=== PATIENT | female | born 1940 | race Caucasian/White ===

== ENCOUNTER 2020-08-03 15:48 | Outpatient (CLI) | payer MEDICARE, SELFPAY ==
--- NOTE | ~2020-08-03 | XR_ITS ---
EXAMINATION: XR abdomen/kub 1V EXAM DATE: 08/03/2020 16:25 INDICATION: Bladder stone. TECHNIQUE: Frontal projection(s) of the abdomen for interpretation. There is no prior study for samra ro. FINDINGS: There is moderate amount of colonic stool and gas. No small bowel dilation, nonobstructiv e bowel gas pattern. Calcifications in the pelvis are believed to be phleboliths. There is no orga nomegaly suspected. Advanced lumbar spondylosis. Total left hip arthroplasty. Lung bases unremarkab le. IMPRESSION: Unremarkable abdomen x-ray exam. Reviewed, dictated and finalized at location A.
--- NOTE | ~2020-08-03 | CT_ITS ---
EXAMINATION: CT abdomen pelvis wo con EXAM DATE: 08/03/2020 16:17 INDICATION: Bladder stone. TECHNIQUE: Spiral CT of the abdomen and pelvis was performed without contrast. Axial, coronal and sag ittal images were reviewed. The dose-length product (DLP) for this examination was 232.19 mGy-cm. T he exposure was tailored according to patient size (auto mA exposure control), and iterative reconstr uction (ASIR) was used as additional dose reduction technique. Comparison is made to prior examinatio n from 02/08/2012. FINDINGS: There are left renal peripelvic cysts. There is no nephrolithiasis or hydronephrosis. The uterus is not identified and has likely been surgically resected. Bladder evaluation is somewhat li mited from the metallic artifact caused by left hip arthroplasty, but there is no suspicion of bladde r stone. The The liver, spleen, adrenal glands and pancreas are unremarkable. Gallbladder is unrema rkable. No biliary obstruction. There is no retroperitoneal or pelvic lymphadenopathy. The appendix is normal. The stomach and small bowel are unremarkable. There is moderate amount of c olonic stool. No free intraperitoneal gas. The heart is normal in size. There are no pericardial or pleural effusions. The lung bases are unremarkable. There are no osteoblastic or osteolytic les ions identified. Moderate to severe lumbar disc disease. IMPRESSION: 1. No genitourinary calcifications, however some limitations in evaluating pelvis due to metallic ar tifact. Reviewed, dictated and finalized at location A. IMPRESSION: 1. No genitourinary calcifications, however some limitations in evaluating pel vis due to metallic artifact.
== END 2020-08-03 15:49 | disposition home or self-care (01) ==
PROVIDERS: PCP Family Medicine; Visit Provider Urology
DX: N21.0 Calculus in bladder (principal)
CPT/HCPCS: 74018; 74176

== ENCOUNTER 2020-08-24 06:54 | Outpatient (NON) | payer MEDICARE, SELFPAY ==
[2020-08-25 02:59] LABS: SARS-CoV-2 RNA PCR Negative
== END 2020-08-24 06:55 ==
LOC: ANHCOVIDDT 06:58
PROVIDERS: PCP Family Medicine; Visit Provider Family Medicine
DX: Z20.828 Contact with and (suspected) exposure to other viral communicable diseases (principal); J01.90 Acute sinusitis, unspecified
CPT/HCPCS: 87635; C9803; U0003

== ENCOUNTER → 2023-08-14 15:24 | Outpatient (CLI) | payer MEDICARE, SELFPAY ==
--- NOTE | ~2023-08-14 | XR_ITS ---
EXAMINATION: XR abdomen obstructive series DATE: 08/14/2023 15:44 INDICATION: Constipation, unspecified. TECHNIQUE: Upright and supine views of the abdomen were obtained. COMPARISON: CT abdomen and pelvis 08/03/2020 FINDINGS: There are no dilated loops of bowel. There is a paucity of stool in the colon. No free intr aperitoneal gas. There is a total left hip arthroplasty. IMPRESSION: 1. Normal bowel gas pattern. Reviewed, dictated and finalized at location E.
== END ==
PROVIDERS: PCP Family Medicine; Visit Provider Family Medicine
DX: K59.00 Constipation, unspecified (principal); R10.9 Unspecified abdominal pain
CPT/HCPCS: 74019

== ENCOUNTER → 2025-08-02 16:05 | Outpatient (CLI) | payer MEDICARE, SELFPAY ==
--- NOTE | ~2025-08-02 | XR_ITS ---
EXAMINATION: XR hip RT min 2V, 08/02/2025 16:10 CDT HISTORY: M25.551 - Pain in right hip COMPARISON: No comparisons available. Findings: No acute fracture or malalignment. Severe degenerative changes Soft tissues unremarkable. Impression: No acute fracture or malalignment. Reviewed, dictated and finalized at location P. Impression: No acute fracture or malalignment.
--- NOTE | ~2025-08-02 | XR_ITS ---
XR lumbar spine min 4V Indication: M54.41 - Lumbago with sciatica, right side Comparison: None Findings: Moderate loss of vertebral height throughout. Moderate osteopenia. No acute fracture or subluxation. Severe loss of disc height throughout. Soft tissues unremarkable Impression: No acute abnormality. Reviewed, dictated and finalized at location P. Impression: No acute abnormality.
--- OUTSIDE RECORDS SUMMARY | 2025-08-02 16:19 | XMS_ITS | Clinical Summary ---
Author Organization [facility] Address [facility] [place] [address] Care Team Providers Care Model Builder Display Name Role Phone Aditya Sheridan MD Primary Care Provider [phone] Allergies No known active allergies Medications ondansetron (ZOFRAN-ODT) 4 MG disintegrating tablet Take 1 tablet (4 mg total) by mouth every 8 (eight) hours as needed for Nausea. 15 tablet Active Social History Tobacco Use Types Packs/Day Years Used Date Smoking Tobacco: Never Smokeless Tobacco: Never Tobacco Cessation:Counseling Given: Not Answered Comments Unknown Sex and Gender Information Value Date Recorded Sex Assigned at Not on file Legal Sex Female 7:04 PM CDT Gender Identity Not on file Sexual Orientation Not on file Last Filed Vital Signs Vital Sign Reading Time Taken Comments Blood Pressure 130/65 10/06/2022 4:51 PM DOCUMENT REVIEW ATTORNEY Pulse 84 10/06/2022 4:51 PM DOCUMENT REVIEW ATTORNEY Temperature 37.6 C (99.7 F) 10/06/2022 4:51 PM DOCUMENT REVIEW ATTORNEY Respiratory Rate 18 10/06/2022 4:51 PM DOCUMENT REVIEW ATTORNEY Oxygen Saturation 98% 10/06/2022 4:51 PM DOCUMENT REVIEW ATTORNEY Inhaled Oxygen Concentration - - Weight 68.4 kg (150 lb 12.7 oz) 10/06/2022 4:51 PM DOCUMENT REVIEW ATTORNEY Height 154.9 cm (5' 1) 10/06/2022 4:51 PM DOCUMENT REVIEW ATTORNEY Body Mass Index 28.49 10/06/2022 4:51 PM DOCUMENT REVIEW ATTORNEY Plan of Treatment Health Maintenance Due Date Last Done Comments DTaP, Tdap and Td Vaccines ( 1 - Tdap) 1957 Pneumococcal Vaccine: 50+ Years (1 of 1 - PCV) 1988 Zoster Vaccines (1 of 2) 1988 Annual Medicare Wellness Visit 2003 RSV Immunization or 60+ Years (1 - 1-dose 75+ series) 2013 COVID-19 Vaccine (4 - 2024-2 6 season) 2025 10/03/2021, 12/30/2020, 12/03/2020 Influenza Adult (#1) 2025 Meningococcal B Vaccine Aged Out No l onger eligible based on patient's age to complete this topic Meningococcal Vaccine Aged Out No yazmin alina eligible based on patient's age to complete this topic RSV Immunizations Under 20 Months Aged Out No longer eligible b ased on patient's age to complete this topic Insurance AETNA MEDICARE Care Teams Model Builder Display Relationship Specialty Start Date End Date Aditya Sheridan MD [address] [place] [address] [address] [place] [address] PCP - General FAMILY PRACTICE 10/06/22
--- OUTSIDE RECORDS SUMMARY | 2025-08-02 16:19 | XMS_ITS | Clinical Summary ---
Author Organization [facility] Address [address] [place] [address] Care Team Providers Care Slicing Machine Operator Name Role Phone Aditya Sheridan MD Primary Care Provider [phone] Source Comments [facility],non-owned Affiliates and Associated Physician Practices is amultiple site organization consisting of ambulatory clinics and hospital sitesin [place], [place], [place] and [place]. This disclosure is being madepursuant to the Care Everywhere program and may not contain all information available regarding this patient. Last updated 18.[facility] Allergies Active Allergy Reactions Criticality Noted Date Comments Adhesive Sensitivity Skin Reactions Low 07/25/2017 Sometimes gets bumps from bandaids Medications * Be aware that medications may not be up to date on this document. Alwaysverify current medications with the patient. atorvastatin (LIPITOR) 20 MG tablet Take 20 mg by mouth once daily 11 7 Active magnesium 500 MG tablet Take 250 mg by mouth at bedtime Active Vitamin D3 (CHOLECALCIFEROL ) 2000 UNITS capsule Take 2,000 Units by mouth at bedtime Active polyethylene glycol 3350 (MIRALAX) powder Take 17 g by mouth once daily as needed for Constipation Active omeprazole (PRILOSEC) 20 MG capsule Take 20 mg by mouth every evening 1 Active Coenzyme Q10 (CoQ-10) 100 MG CoQ-10 Acti ve Turmeric (QC TUMERIC COMPLEX PO) tumeric 100 mg-yaa 150 mg-olive 50 mg-oreg 150 mg-caprylate capsule Take by oral route. Active celecoxib (CeleBREX) 200 MG capsule Take 1 (one) capsule by mouth 2 times daily 60 capsule 1 2 Active oxyCODONE, immediate release, (Roxicodone) 5 MG tabletIndication s:Fall, initial encounter,Closed nondisplaced fracture of medial epicondyle of right humerus, unspecified fracture morphology, initial encounter,Lacera tion of scalp, initial encounter Take 1 (one) tablet by mouth every 6 hours as needed for Pain 8 tablet 5 Active Active Problems Problem Noted Date Diagnosed Date Contusion of elbow 03/07/2025 Closed fracture of distal end of radius 07/05/20 21 Primary osteoarthritis of left knee 07/05/2021 Fracture of forearm 07/05/2021 Shoulder joint pain 07/05/2021 Prediabetes 02/04/2018 Sciatica of right side 12/17/2017 Right hip pain 11/24/2017 Status post total hip replacement, left 08/30/20 17 HTN (hypertension) 08/01/2017 Hyperlipidemia 08/01/2017 CAD (coronary artery disease) 08/01/2017 Presence of left artificial hip joint 08/01/2017 Primary osteoarthritis of left hip 07/19/2017 Aortic atherosclerosis 04/29/2017 Overview (07/05/2021): XR CHEST PA AND LATERAL DATE: 03/12/2017 - Atherosclerosis is noted in the aorta. Basal cell carcinoma 07/08/2012 Other seborrheic keratosis 06/24/2012 Resolved Problems Problem Noted Date Diagnosed Date Resolved Date Diagnosis unknown 08/01/2017 08/01/2017 Pain of left hip joint 08/01/201708/01 Immunizations Immunization Administration Dates Next Due TDAP (7yrs+) 02/07/2025(Deferred: Patient Ref used) Family History Medical History Relation Name Comments Other - Cardiac Other Heart Diseas e Relation Name Status Comments Other Social History Tobacco Use Types Packs/Day Years Used Date Smoking Tobacco: Never Smokeless Tobacco: Never Tobacco Cessation:Counseling Given: Not Answered Alcohol Use Standard Drinks/Week Comments No 0 (1 standard drink = 0.6 oz pur e alcohol) AUDIT-C Answer Date Recorded Q1: How often do you have a drink containing alcohol? Never 09/03/2022 Q2: How many drinks containi ng alcohol do you have on a typical day when you are drinking? Patient does not drink Q3: How often do you have si x or more drinks on one occasion? Never 09/03/2022 PHQ-2 Answer Date Recorded Patient Health Questionnaire-2 Score 1 02/22/2025 Hunger Vital Sign Answer Date Recorded Within the past 12 months, y ou worried that your food would run out before you got the money to buy more. Never true 09/03/20 22 Within the past 12 months, t he food you bought just didn't last and you didn't have money to get more. 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 on file Not on file Not on file Last Filed Vital Signs Vital Sign Reading Time Taken Comments Blood Pressure 152/79 02/07/2025 7:10 PM CDT Pulse 82 02/07/2025 7:10 PM CDT Temperature 36.7 C (98 F) 02/07/2025 10:17 AM CDT Respiratory Rate 18 02/07/2025 7:10 PM CDT Oxygen Saturation 95% 02/07/2025 7:10 PM CDT Inhaled Oxygen Concentration - - Weight 69.9 kg (154 lb) 02/24/2025 2:33 PM CDT Height 154.9 cm (5' 1) 02/07/2025 10:17 AM CDT Body Mass Index 29.1 02/07/2025 10:17 AM CDT Plan of Treatment Health Maintenance Due Date Last Done Comments DTAP/TDAP/TD VACCINES (1 - Tdap) 1959 PNEUMOCOCCAL VACCINE 50+ (1 of 1 - PCV) 1988 ZOSTER VACCINE (1 of 2) 1988 Respiratory Syncytial Virus (RSV) Vaccine Pt: or over 60 yrs (1 - 1-dose 75+ series) 2013 MEDICARE AWV CALENDAR YEAR 2024 COVID-19 VACCINE ( - 2024-2 6 season) 2025 10/03/2021, 12/30/2020, 12/03/2020 INFLUENZA VACCINE (#1) 2025 07/25/2018 BONE DENSITY TESTING Completed 09/02/2018 DEPRESSION SCREENING Completed 02/24/2025, 02/24/2025 HEPATITIS B VACCINE Aged Out No longe r eligible based on patient's age to complete this topic HIB VACCINE Aged Out No longer eligi ble based on patient's age to complete this topic HPV VACCINE Aged Out No longer eligi ble based on patient's age to complete this topic MENINGOCOCCAL (Group B) VACCINE SHARED DECISION-MAKING Aged Out No longer eligible based on patient's age to complete this topic MENINGOCOCCAL GROUPS A/C/Y/W VACCINE Aged Out No longer eligible b ased on patient's age to complete this topic Medical Devices Implanted Type Area Creative Technologist Device Identifier Shelf Expiration Date Model / Serial / Lot Screw 6.5mm 40mm Sphr Hip Actb Reflc Implanted:Qty: 1 on 08/01/2017 by Wing Giron MD at [facility] Left: Hip [employer] 01/18/2022 [id number] / / Liner Actb R3 20d 48mm 32mm Xlpe Hip Implanted:Qty: 1 on 08/01/2017 by Wing Giron MD at [facility] Left: Hip [employer] 04/03/2027 [id number] / / Shell Actb 48mm Hip 3 Hl R3 Std Strl Implanted:Qty: 1 on 08/01/2017 by Wing Giron MD at [facility] Left: Hip [employer] 05/21/2027 [id number] / / Mv Bone Cement Implanted:Qty: 2 on 08/01/2017 by Wing Giron MD at [facility] Left: Hip [employer] 05/20/2020 [id number] / / [id number] Cemented Stem Femoral Component- Size 12 Implanted:Qty: 1 on 08/01/2017 by Wing Giron MD at [facility] Left: Hip [employer] 07/03/2027 [id number] / / [id number] Distal Post Centralizer- 11mm Implanted:Qty: 1 on 08/01/2017 by Wing Giron MD at [facility] Left: Hip [employer] 11/06/2026 [id number] / / [id number] Head Fem +0mm 10/03 32mm Hip Oxnm Implanted:Qty: 1 on 08/01/2017 by Wing Giron MD at [facility] Left: Hip [employer] 09/25/2026 [id number] / / Tray Tib 71mm Kn Cocr I Beam Implanted:Qty: 1 on 09/03/2022 by Vishnu Bianchi MD at [facility] Left: Knee [employer] 06/07/2032 [id number] / / [id number] Cmpnt Fem Kn Lt Cr Cmnt Prm Vngrd Intlk Implanted:Qty: 1 on 09/03/2022 by Vishnu Bianchi MD at [facility] Left: Knee [employer] 07/11/2032 [id number] / / [id number] Brng [id number] Vngrd Arcm Kn Ant Stab Implanted:Qty: 1 on 09/03/2022 by Vishnu Bianchi MD at [facility] Left: Knee [employer] 07/13/2027 [id number] / / [id number] Cmnt Bone Djo Srg Cblt 40gm Hvisc Strl Implanted:Qty: 1 on 09/03/2022 by Vishnu Bianchi MD at [facility] Left: Knee [employer] 11/16/2023 [id number] / / [id number] Cmpnt Ptlr Std 28mm 3 Pg Kn Ser A Implanted:Qty: 1 on 09/03/2022 by Vishnu Bianchi MD at [facility] Left: Knee [employer] 08/23/2026 [id number] / / [id number] Insurance T [place] MEDICARE AET T AETNA MEDICARE ADV Advance Directives * Full Code (Latest Code Status on File) Date Activated Date Inactivated Comments 09/03/2022 1:22 PM 09/04/2022 3:33 PM * Full Code Date Activated Date Inactivated Comments 08/01/2017 2:04 PM 08/04/2017 1:18 PM Care Teams Slicing Machine Operator Relationship Specialty Start Date End Date Aditya Sheridan MD [address] [address] [place] [address] PCP - General 05/23/21
--- OUTSIDE RECORDS SUMMARY | 2025-08-02 16:19 | XMS_ITS | Encounter Summary ---
Author Organization [facility] Address [address] [place] [address] Care Team Providers Care Tennis Ball Coverer Hand Name Role Phone Aditya Sheridan MD Primary Care Provider [phone] Encounter Details Date Type Department Care Team (Late st Contact Info) Description 02/08/1999 Outpatient Historical [facility] John Melo MD [address] [place] [address] Social History Tobacco Use Types Packs/Day Years Used Date Smoking Tobacco: Never Assessed Comments Unknown Sex and Gender Information Value Date Recorded Sex Assigned at Not on file Legal Sex Female 2:37 AM GATE SHEAR OPERATOR Gender Identity Not on file Sexual Orientation Not on file documented as of this encounter Plan of Treatment Not on file documented as of this encounter Visit Diagnoses Not on filedocumented in this encounter Care Teams Tennis Ball Coverer Hand Relationship Specialty Start Date End Date Aditya Sheridan MD [address] [place] [address] [address] [place] [id number] PCP - General Family Practice 12/10/24 documented as of this encounter
--- OUTSIDE RECORDS SUMMARY | 2025-08-02 16:19 | XMS_ITS | Clinical Summary ---
Author Organization [facility] Address [address] [place] [address] Care Team Providers Care Billiard Table Mechanic Name Role Phone Aditya Sheridan MD Primary Care Provider [phone] Allergies No known active allergies Medications atorvastatin (LIPITOR) 20 mg tablet TK 1 T PO QD 10 08/12/2016 Active aspirin (ECOTRIN EC) 81 mg Tablet, Delayed Release (E.C.) Take 81 mg by mouth daily. Active Cholecalciferol, Vitamin D3, 2,000 unit Capsule Take 2,000 Units by mouth. Active cyanocobalamin 1,000 mcg Tablet Take 1,000 mcg by mouth daily. Active magnesium oxide (MAG-OX) 400 mg tablet Take 400 mg by mouth daily. Active coenzyme Q10 Capsule Take 10 mg by mouth daily. Active amLODIPine (NORVASC) 2.5 mg tablet TAKE 1 TABLET(2.5 MG) BY MOUTH DAILY. 90 Tablet 3 02/04/2018 Active furosemide (LASIX) 20 mg tabletIndications :Essential hypertension TAKE 1 TABLET(20 MG) BY MOUTH DAILY 30 Tablet 03/25/2018 Active lisinopril (PRINIVIL) 10 mg tabletIndications :Essential hypertension TAKE 1 TABLET(10 MG) BY MOUTH DAILY 30 Tablet 4 06/26/2018 Active meclizine (ANTIVERT) 25 mg tablet Take 1 Tablet (25 mg) by mouth 3 times daily as needed for Dizziness. 30 Tablet 08/20/2018 Active Active Problems Patient Care Coordination No te Formatting of this note migh t be different from the original. HCC coding review full 11/13/16 clk Pre Visit Encounter Review 11/21/16 clk, 04/29/17 clk HCC codes reviewed 01/30/17 clk Problem Noted Date Diagnosed Date Prediabetes 02/04/2018 Presence of left artificial hip joint 08/01/2017 Aortic atherosclerosis 04/29/2017 Overview (04/29/2017): XR CHEST PA AND LATERAL DATE: 03/12/2017 - Atherosclerosis is noted in the aorta. HTN (hypertension) Hyperlipidemia DJD (degenerative joint disease) of knee Resolved Problems Problem Noted Date Diagnosed Date Resolved Date Pain, upper back 12/12/2016 01/30/2017 Vertigo 02/04/2018 Encounters Date Type Department Care Team Description 06/22/2025 External Device Data ST[facility] ABSTRACTION Provider, Abstract 06/08/2025 External Device Data [facility] ABSTRACTION Provider, Abstract 06/01/2025 External Device Data [facility] ABSTRACTION Provider, Abstract 05/26/2025 External Device Data [facility] ABSTRACTION Provider, Abstract 05/05/2025 External Device Data ST[facility] ABSTRACTION Provider, Abstract 05/04/2025 External Device Data ST[facility] ABSTRACTION Provider, Abstract from Last 3 Months Immunizations Immunization Administration Dates Next Due (PNEUMOVAX 23)(50 YRS UP) PN EUMOCOCCAL POLYSACCHARIDE (PPV23) 0.5 ML, IM 08/21/2018 (PREVNAR 13)(6 WKS UP) PNEUM OCOCCAL CONJUGATE (PCV13) 0.5 ML, IM 01/30/2017 Influenza Seasonal Unspecified Formulation IM Family History Medical History Relation Name Comments Heart Disease Brother Heart Disease Father Lung Cancer Mother Relation Name Status Comments Brother Father Mother Sister Alive Social History Tobacco Use Types Packs/Day Years Used Date Smoking Tobacco: Never Feeling Safe Answer Date Recorded Are you in a relationship wi th someone who hurts you emotionally and/or physically? No 12/10/2024 Comments Unknown Sex and Gender Information Value Date Recorded Sex Assigned at Not on file Legal Sex Female 2:37 AM NURSES' AIDE Gender Identity Not on file Sexual Orientation Not on file Last Filed Vital Signs Vital Sign Reading Time Taken Comments Blood Pressure 120/63 12/10/2024 3:35 PM NURSES' AIDE Pulse 66 12/10/2024 3:35 PM NURSES' AIDE Temperature 36.9 C (98.4 F) 12/10/2024 10:12 AM NURSES' AIDE Respiratory Rate 17 12/10/2024 3:35 PM NURSES' AIDE Oxygen Saturation 100% 12/10/2024 3:35 PM NURSES' AIDE Inhaled Oxygen Concentration - - Weight 72.6 kg (160 lb) 12/10/2024 10:12 AM NURSES' AIDE Height 157.5 cm (5' 2) 12/10/2024 10:12 AM NURSES' AIDE Body Mass Index 29.26 12/10/2024 10:12 AM NURSES' AIDE Plan of Treatment Health Maintenance Due Date Last Done Comments DTAP/TDAP/TD VACCINES (1 - Tdap) 1957 ZOSTER VACCINE (1 of 2) 1988 RSV VACCINE (60+ or ) (1 - 1-dose 75+ series) 2013 OSTEOPOROSIS SCREENING 09/02/2023 09/02/2018 INFLUENZA VACCINE (#1) 2025 07/25/2018 PNEUMOCOCCAL VACCINE 50+ YEARS Completed 08/21/2018 , 01/30/2017 Procedures Procedure Name Priority Date/Time Associated Diagnosis Comments XR DEXA BONE DENSITY AXIAL 1 OR MORE SITES Routine 09/02/2018 11:46 AM NURSES' AIDE Postmenopausal from Last 3 Months or Most Recently Relevant to Health Maintenance Results * XR DEXA BONE DENSITY AXIAL 1 OR MORE SITES (09/02/2018 11:46 AM NURSES' AIDE) Anatomical Region Laterality Modality Digital Radiogra phy 09/02/2018 11:4 6 AM NURSES' AIDE Narrative 09/02/2018 12:18 PM NURSES' AIDE XR DEXA BONE DENSITY AXIAL 1 OR MORE SITES DATE: 09/02/2018 11:46 AM HISTORY: 78 years old Female with post menopausal symptoms. PROCEDURE: Planar images of the lumbar spine, forearm and hip(s) using a [employer] DEXA scanner for bone mineral density determination (BMD). FINDINGS: Lumbar Spine (L1-L4) 1.193 gm/cm2, T-score: 0.0 Right femoral neck 0.843 gm/cm2, T-score: -1.4 Left Radius 33% 0.777 gm/cm2, T-score: -1.2 Comments: The left femoral neck was excluded from bone mineral density measurements secondary to the presence of orthopedic hardware. IMPRESSION Osteopenic bone mineral density. DEFINITIONS: Normal: T-score above -1.0 Osteopenia T-score less than -1.0 and above -2.5 Osteoporosis: T-score < -2.5 FRAX FRACTURE RISK ASSESSMENT: Risk factors: Family history 10 Year Probability Of Fracture -Major Osteoporotic: 22.1% -Hip: 12.1% -Comparison population: [place], A major osteoporotic fracture is defined as a fracture of the spine, forearm, hip or shoulder. FOLLOW-UP RECOMMENDATIONS: Patients without high risk factors for osteoporosis: T-score -1.0 to -1.5 - Consider repeat BMD in 5-10 years T-score -1.5 to -2.0 - Consider repeat BMD in 3-5 years T-score -2.0 to - 2.5 - Consider repeat BMD every 2 years Patients on treatment for osteoporosis: 1-2 years after initiation of treatment and every 2 [address] Mac Gilliland DO DICTATION LOCATION: Location 1 - [facility] Procedure Note Mac Gilliland DO - 09/02/2018 XR DEXA BONE DENSITY AXIAL 1 OR MORE SITES DATE: 09/02/2018 11:46 AM HISTORY: 78 years old Female with post menopausal symptoms. PROCEDURE: Planar images of the lumbar spine, forearm and hip(s) using a [employer] DEXA scanner for bone mineral density determination (BMD). FINDINGS: Lumbar Spine (L1-L4) 1.193 gm/cm2, T-score: 0.0 Right femoral neck 0.843 gm/cm2, T-score: -1.4 Left Radius 33% 0.777 gm/cm2, T-score: -1.2 Comments: The left femoral neck was excluded from bone mineral density measurements secondary to the presence of orthopedic hardware. IMPRESSION Osteopenic bone mineral density. DEFINITIONS: Normal: T-score above -1.0 Osteopenia T-score less than -1.0 and above -2.5 Osteoporosis: T-score < -2.5 FRAX FRACTURE RISK ASSESSMENT: Risk factors: Family history 10 Year Probability Of Fracture -Major Osteoporotic: 22.1% -Hip: 12.1% -Comparison population: [place], A major osteoporotic fracture is defined as a fracture of the spine, forearm, hip or shoulder. FOLLOW-UP RECOMMENDATIONS: Patients without high risk factors for osteoporosis: T-score -1.0 to -1.5 - Consider repeat BMD in 5-10 years T-score -1.5 to -2.0 - Consider repeat BMD in 3-5 years T-score -2.0 to - 2.5 - Consider repeat BMD every 2 years Patients on treatment for osteoporosis: 1-2 years after initiation of treatment and every 2 years thereafter [address] Mac Gilliland DO DICTATION LOCATION: Location 1 - [facility] Diane Harding MD DIAGNOSTIC IMAGING ORDERABLE S Final Result from Last 3 Months or Most Recently Relevant to Health Maintenance [facility] Care Teams Billiard Table Mechanic Relationship Specialty Start Date End Date Aditya Sheridan MD [address] [place], [place] [address] [place] [id number] PCP - General Family Practice 12/10/24
--- OUTSIDE RECORDS SUMMARY | 2025-08-02 16:19 | XMS_ITS | Encounter Summary ---
Author Organization [employer] [facility] Address [address] [place] [address] Care Team Providers Care Superintendent Plant Protection Name Role Phone Aditya Sheridan MD Primary Care Provider [phone] Encounter Details Date Type Department Care Team (Late st Contact Info) Description 11/17/2002 Outpatient Historical [facility] Marium Norton, DO [address] [place] [address] SCREENING MAMM-MAILG NEOPL-OTHER (Primary Dx) Social History Tobacco Use Types Packs/Day Years Used Date Smoking Tobacco: Never Assessed Comments Unknown Sex and Gender Information Value Date Recorded Sex Assigned at Not on file Legal Sex Female 2:37 AM VENEER SORTER Gender Identity Not on file Sexual Orientation Not on file documented as of this encounter Plan of Treatment Not on file documented as of this encounter Visit Diagnoses Diagnosis Other screening mammogram- Primary documented in this encounter Care Teams Superintendent Plant Protection Relationship Specialty Start Date End Date Aditya Sheridan MD [address] [place] [address] [address] [place] [id number] PCP - General Family Practice 12/10/24 documented as of this encounter
--- OUTSIDE RECORDS SUMMARY | 2025-08-02 16:19 | XMS_ITS | Encounter Summary ---
Author Organization [employer] Address 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
== END ==
LOC: EXPTRAD 16:07
PROVIDERS: PCP Family Medicine; Visit Provider Family Medicine
DX: M54.41 Lumbago with sciatica, right side (principal); G89.29 Other chronic pain; M25.551 Pain in right hip
CPT/HCPCS: 72110; 73502